=== PATIENT | male | born 1970 | race Caucasian/White ===

== ENCOUNTER 2016-12-20 20:53 | Observation (INO) | payer MEDICARE, MEDICAID ==
[~2016-12-20] VITALS: Ht 180.3 cm; Wt 137.0 kg
--- NOTE | 2016-12-20 20:56 | NUR ---
PT IMMEDIATELY TO RM 10. AMBULATED W/O DIFFICULTY.
--- NOTE | 2016-12-20 21:05 | NUR ---
DR JESUS AT BEDSIDE.
[2016-12-20] MEDS ORDERED: DESYREL50 MG PO (21:29)
[2016-12-20] MEDS ORDERED: SEROQUEL100 MG PO (21:30)
[2016-12-20] MEDS ORDERED: KEPPRA XR500 MG PO (21:31)
[2016-12-20] MEDS ORDERED: ZANTAC150 M1 PO (21:32)
[2016-12-20] MEDS ORDERED: TIZANIDINE HCL4 MG PO (21:32)
[2016-12-20] MEDS ORDERED: METFORMIN500 MG PO (21:33)
[2016-12-20] MEDS ORDERED: PERCOCET1 TA4 PO (21:34)
--- NOTE | 2016-12-20 21:38 | NUR ---
PORT XRAY AT BEDSIDE.
[2016-12-20 21:44] LABS: HEMATOCRIT 37.5 % (39.0-50.0); HEMOGLOBIN 12.9 g/dl (14.0-18.0); IMMATURE GRANULOCYTES 0.4 % (0.0-1.0); MEAN CELL VOLUME 80.5 fL CALC (80.0-100.0); MEAN CORPUSCULAR HGB 27.7 pG CALC (26.0-32.0); MEAN CORPUSCULAR HGB CONC 34.4 g/L CALC (32.0-36.0); NEUT# 4.31 thou/uL (1.82-7.42); RED BLOOD COUNT 4.66 mill/uL (4.70-6.10); RED CELL DISTRI WIDTH 14.6 % (11.5-15.5)
[2016-12-20 21:51] LABS: ALBUMIN 3.9 g/dL (3.2-5.0); ALKALINE PHOSPHATASE 97 u/l (38-126); AMYLASE 115 u/l (30-110); ANION GAP 16 (6-22 (CALC)); BILIRUBIN, TOTAL 0.5 mg/dL (0.0-1.4); BUN 11 mg/dL (9-20); BUN/CREATININE RATIO 13 (12-20 (CALC)); CALCIUM 8.8 mg/dL (8.4-10.2); CARBON DIOXIDE 23 mmol/l (22-30); CHLORIDE 103 mmol/l (95-108); CREATININE 0.8 mg/dL (0.7-1.3); GFR > 60 ML/MIN (>=60 (CALC)); GFR FOR AFR.AMER. > 60 ML/MIN (>=60 (CALC)); GLUCOSE 307 mg/dL (75-110); LIPASE 83 u/l (23-300); POTASSIUM 3.9 mmol/l (3.5-5.1); SGOT/AST 28 u/l (17-59); SGPT/ALT 37 u/l (21-72); SODIUM 138 mmol/l (137-146); TOTAL PROTEIN 7.2 g/dL (6.3-8.2)
[2016-12-20 22:02] LABS: ACT PARTIAL THROMBO TIME 23.1 SECONDS (20.0-32.5); INTERNATIONAL NORMALIZED RATIO 0.9 RATIO (0.7-1.3); MYOGLOBIN 30 ng/mL (0 - 121)
--- NOTE | 2016-12-20 22:27 | NUR ---
PT RELATED HIS CHEST PAIN IS IMPROVING. NO DISTRESS NOTED, PT PLAYING VIDEO GAME.
[2016-12-20 22:32] LABS: URINE BILIRUBIN - DIPSTICK NEGATIVE (NEGATIVE); URINE BLOOD DIPSTICK NEGATIVE (NEGATIVE); URINE CLARITY CLEAR; URINE COLOR YELLOW; URINE GLUCOSE - DIPSTICK >=1000 mg/dL (NEGATIVE); URINE KETONE TRACE mg/dL (NEGATIVE); URINE LEUK ESTERASE NEGATIVE (NEGATIVE); URINE NITRITE - DIPSTICK NEGATIVE (Negative); URINE PH 5.5 (4.5-8.0); URINE PROTEIN - DIPSTICK NEGATIVE (NEG-TRACE); URINE UROBILINOGEN - DIPSTICK 0.2 E.U./dL (0.2)
[2016-12-20 22:38] LABS: BARBITURATES NEGATIVE (NEGATIVE); COCAINE NEGATIVE (NEGATIVE); METHADONE NEGATIVE (NEGATIVE); TETRAHYDROCANNABIONOL NEGATIVE (NEGATIVE); TRICYLIC ANTIDEPRESSANTS NEGATIVE (NEGATIVE)
[2016-12-20 22:40] LABS: OXCYCODONE NEGATIVE (NEGATIVE)
--- NOTE | 2016-12-20 22:52 | NUR ---
PT RATED CHEST PAIN 0/10 ABD PAIN 7/10 ERP INFORMED.
--- NOTE | 2016-12-20 23:06 | NUR ---
REPORT CALLED TO [facility].
--- NOTE | 2016-12-20 23:10 | NUR ---
PT TO 261 VIA STRETCHER WITH TELE AND RN.
[2016-12-20 23:20] VITALS: BP 118/76
--- NOTE | 2016-12-20 23:20 | NUR ---
PT. ARRIVED TO THE FLOOR VIA STRETCHER ACCOMPANIED BY ER NURSE. PT. ABLE TO AMBULATE WITH STEADY GAIT. PT. STABLE. CALL LIGHT IS IN REACH.
--- NOTE | 2016-12-20 23:32 | NUR ---
PT. RESTING IN BED WITH NO DISTRESS NOTED. PT. ORIENTED TO CALL LIGHT, ROOM, POC, VERBALIZES UNDERSTANDING. ADMISSION ASSESSMENT COMPLETED. PT. C/O ABDOMINAL PAIN 05/09, PT. RELLUCTANT TO TRY BENTYL AND REPORTS HE WILL PROBABLY NEEDS SOMETHING STRONGER. PT. ADVISED TO TRY BENTYL AND WILL REASSESS POST, PT. IS IN AGREEMENT WITH THIS, AND ADMINISTERED AT THIS TIME ALONG WITH SCHED MEDS. PT. DENIES ANY CP. TELEMETRY IS IN PLACE. PO FLUIDS OFFERED. ENCOURAGED TO CALL FOR ANY NEEDS. CALL LIGHT IS IN REACH.
--- NOTE | 2016-12-21 03:07 | NUR ---
PT. C/O ABDOMINAL PAIN AND REQUESTS THAT THIS COLOR MIXER CALL MD FOR FUTHER PAIN MEDICATION ORDERS. CALLED DR. HAND AT THIS TIME AND INFORMED HIM OF THIS. NO NEW MEDICATIONS ORDERED. ORDER RECEIVED FOR CT OF ABD/PELVIS, AND TO BE CARRIED OUT.
--- NOTE | 2016-12-21 03:16 | NUR ---
PT. UPDATED WITH POC AND OF NO NEW MEDICATION ORDERS, PT. VERBALIZES UNDERSTANDING. OFFERED PT. PRN TYLENOL, PT. REFUSES. MEDICATED WITH ORDERED PRN ZOFRAN FOR NAUSEA. WILL START ORAL CONTRAST FOR CT SOON PROFILED.
[2016-12-21 03:28] VITALS: BP 112/61
--- NOTE | 2016-12-21 05:47 | NUR ---
PT. RETURNED FROM CT C/O ABDOMINAL PAIN MORE SO ON THE RIGHT SIDE, MEDICATED WITH PRN BENTYL PER ORDER. ENCOURAGED TO CALL FOR ANY NEEDS. CALL LIGHT IS IN REACH.
--- NOTE | 2016-12-21 07:00 | NUR ---
RECEIVED BEDSIDE REPORT FROM [facility]. PT RESTING ON LEFT SIDE WITH EYES CLOSED, AWAKENS EASILY. RESPS EVEN AND UNLABORED ON ROOM AIR, TELE MONITOR IN PLACE. PLAN OF CARE DISCUSSED. SAFETY PRECAUTIONS REINFORCED. BEDRAILS PADDED FOR SAFETY. BED IN LOWEST POSITION WITH WHEELS LOCKED. CALL LIGHT WITHIN REACH. WILL CONTINUE TO MONITOR.
[2016-12-21 08:51] VITALS: BP 108/56
--- NOTE | 2016-12-21 10:30 | NUR ---
AMBULATING IN HALLWAY WITH STEADY GAIT.
--- NOTE | 2016-12-21 11:30 | NUR ---
DR VERDUZCO IN TO SEE PT, NEW ORDERS RECEIVED.
[2016-12-21] MEDS ORDERED: ASPIRIN CHEWABL81 MG PO (11:37)
[2016-12-21] MEDS ORDERED: LIPITOR40 M1 PO (11:37)
[2016-12-21] MEDS ORDERED: AMARYL1 MG PO (11:46)
[2016-12-21] MEDS ORDERED: PROTONIX40 M2 PO (12:03)
--- NOTE | 2016-12-21 12:10 | NUR ---
RESTING QUIETLY IN BED. RESPS EVEN AND UNLABORED ON ROOM AIR, TELE MONITOR IN PLACE. DENIES PAUN OR DISCOMFORT. CALL LIGHT WITHIN REACH. WILL CONTINUE TO MONITOR.
--- NOTE | 2016-12-21 14:40 | NUR ---
Discharge instructions given. Patient verbalizes understanding of same. Discharged in stable condition via Wheelchair to Home with family. All belongings sent with pt.
== END 2016-12-21 14:42 | disposition home or self-care (01) ==
LOC: ENPENDDIS → ED 20:53 → ED-I 22:47 → ED 22:52 → MS2 22:53
PROVIDERS: Emergency Medicine; ADMIT Internal Medicine; ATTEND Internal Medicine
DX: R07.89 Other chest pain (principal); R10.84 Generalized abdominal pain; E11.65 Type 2 diabetes mellitus with hyperglycemia; G40.909 Epilepsy, unspecified, not intractable, without status epilepticus; G89.29 Other chronic pain; F41.9 Anxiety disorder, unspecified; E78.1 Pure hyperglyceridemia; R20.0 Anesthesia of skin; R11.2 Nausea with vomiting, unspecified; R19.7 Diarrhea, unspecified; Y84.8 Other medical procedures as the cause of abnormal reaction of the patient, or of later complication, without mention of misadventure at the time of the procedure
CPT/HCPCS: Q9967